=== PATIENT | male | born 1995 | race Caucasian/White ===

== ENCOUNTER 2017-01-12 15:56 | Emergency (ER) | payer OTHER ==
[2017-01-12 16:13] VITALS: BP 137/72
[2017-01-12] MEDS ORDERED: Lidocaine 1% 20 ML MDV INJECT ONE (16:17)
[2017-01-12] MEDS ORDERED: Bupivacaine 0.5% 10 ML SDV INJECT ONE (16:17)
--- NOTE | 2017-01-12 16:31 | EDM.PDOC ---
ED HPI GENERAL MEDICAL PROBLEM - General Chief Complaint: Upper Extremity Injury/Pain Stated Complaint: SMASHED FINGER Time Seen by Provider: 01/12/17 16:08 Source of Information: Reports: Patient History Limitations: Reports: No Limitations - History of Present Illness INITIAL COMMENTS - FREE TEXT/NARRATIVE: History of present illness: []Patient was working on his car and his right index finger was crushed Review of systems: As per history of present illness and below otherwise all systems reviewed and negative. Past medical history: As per history of present illness and as reviewed below otherwise noncontributory. Surgical history: As per history of present illness and as reviewed below otherwise noncontributory. Social history: No reported history of drug or alcohol abuse. Family history: As per history of present illness and as reviewed below otherwise noncontributory. Physical exam: General: Well developed, well nourished in NAD HEENT: Atraumatic, normocephalic, pupils reactive, negative for conjunctival pallor or scleral icterus, mucous membranes moist, throat clear, neck supple, nontender, trachea midline. Lungs: Clear to auscultation, breath sounds equal bilaterally, chest nontender. Heart: S1S2, regular, negative for clicks, rubs, or JVD. Abdomen: Soft, nondistended, nontender. Negative for masses or hepatosplenomegaly. Negative for costovertebral tenderness. Pelvis: Stable nontender. Genitourinary: Deferred. Rectal: Deferred. Extremities: Right index finger with crush nail plate and bed, no active bleeding negative for cords or calf pain. Neurovascular unremarkable. Neuro: Awake, alert, oriented. Cranial nerves II through XII unremarkable. Cerebellum unremarkable. Motor and sensory unremarkable throughout. Exam nonfocal. Diagnostics: []X-ray showing no fracture or dislocation Therapeutics: []Patient's finger was repaired in the ED by Dr. Cavazos, please see her note Impression: []Crush injury right index finger Plan: []Daniel Ahmadi follow-up with Dr. Cavazos as directed Definitive disposition and diagnosis as appropriate pending reevaluation and review of above. Right 2-Index finger Pain Score (Numeric/FACES): 6 - Related Data Allergies Allergy/AdvReac Type Severity Reaction Status Date / Time No Known Allergies Allergy Verified 01/12/17 16:13 Home Meds: Home Meds Acetaminophen/HYDROcodone [[place] 325-5 MG] 1 tab PO Q6H PRN #16 tablet 01/12/17 [Rx] Cephalexin [Keflex] 500 mg PO Q6HR #28 cap 01/12/17 [Rx] Past Medical History Gastrointestinal History: Reports: None - Past Surgical History GI Surgical History: Reports: Appendectomy Other Musculoskeletal Surgeries/Procedures:: left shouylder surgery Social & Family History - Family History Family Medical History: Noncontributory - Tobacco Use Smoking Status *Q: Current Every Day Smoker Years of Tobacco use: 4 Packs/Tins Daily: 0.4 - Caffeine Use Caffeine Use: Reports: Coffee Caffeine Use Comment: 1cups/day - Alcohol Use Days Per Week of Alcohol Use: 1 Number of Drinks Per Day: 2 Total Drinks Per Week: 2 - Recreational Drug Use Recreational Drug Use: No Review of Systems - Review of Systems Review Of Systems: See Below (See history of present illness) ED EXAM, GENERAL - Physical Exam Exam: See Below (See history of present illness) Course - Vital Signs Last Recorded V/S: Last Vital Signs Temp 36.4 C 01/12/17 16:09 Pulse 81 01/12/17 16:09 Resp 19 01/12/17 16:09 BP 137/72 01/12/17 16:09 Pulse Ox 96 01/12/17 16:09 - Orders/Labs/Meds Orders: Active Orders 24 hr Category Date Time Status Fingers Second Digit Rt F6 [CR] Stat Exams 01/12/17 16:18 Taken Meds: Medications Discontinued Medications Generic Name Dose Route Start Last Admin Trade Name Yannq PRN Reason Stop Dose Admin Bupivacaine HCl 10 ml 01/12/17 16:17 01/12/17 16:25 Sensorcaine-Mpf 0.5% INJECT 01/12/17 16:18 10 ml ONETIME ONE Administration Cefazolin Sodium 1 gm 01/12/17 16:32 01/12/17 16:51 Ancef IM 01/12/17 16:33 1 gm ONETIME ONE Administration Sterile Water Confirm 01/12/17 16:47 01/12/17 16:51 Sterile Water For Injection Administered 01/12/17 16:48 Not Given Dose 20 mls @ as directed .ROUTE .STK-MED ONE Lidocaine HCl 20 ml 01/12/17 16:17 01/12/17 16:25 Xylocaine 1% INJECT 01/12/17 16:18 20 ml ONETIME ONE Administration Departure - Departure Time of Disposition: 17:21 Disposition: Home, Self-Care 01 Condition: good Clinical Impression: Crushing injury of right index finger, initial encounter Qualifiers: Encounter type: initial encounter Qualified Code(s): S67.190A - Crushing injury of right index finger, initial encounter - Discharge Information Prescriptions: Cephalexin [Keflex] 500 mg PO Q6HR #28 cap Acetaminophen/HYDROcodone [[place] 325-5 MG] 1 tab PO Q6H PRN #16 tablet PRN Reason: Pain Forms: ED Department Discharge Additional Instructions: The following information is given to patients seen in the emergency department who are being discharged to home. This information is to outline your options for follow-up care. We provide all patients seen in our emergency department with a follow-up referral. The need for follow-up, as well as the timing and circumstances, are variable depending upon the specifics of your emergency department visit. If you don't have a primary care physician on staff, we will provide you with a referral. We always advise you to contact your personal physician following an emergency department visit to inform them of the circumstance of the visit and for follow-up with them and/or the need for any referrals to a consulting specialist. The emergency department will also refer you to a specialist when appropriate. This referral assures that you have the opportunity for follow-up care with a specialist. All of these measure are taken in an effort to provide you with optimal care, which includes your follow-up. Under all circumstances we always encourage you to contact your private physician who remains a resource for coordinating your care. When calling for follow-up care, please make the office aware that this follow-up is from your recent emergency room visit. If for any reason you are refused follow-up, please contact the [facility] Emergency Department at and asked to speak to the emergency department charge nurse. Keflex and [place] as directed ice and elevate finger Follow-up hand surgery [facility] Professional Building [address] [place] [address], [address] [place] [address] - My Orders Last 24 Hours: My Active Orders 01/12/17 16:18 Fingers Second Digit Rt F6 [CR] Stat - Assessment/Plan Last 24 Hours: My Active Orders 01/12/17 16:18 Fingers Second Digit Rt F6 [CR] Stat
[2017-01-12] MEDS ORDERED: Water For Injection, Sterile 20 ML ONE (16:47)
[2017-01-12] MEDS: ceFAZolin 1 GM Vial IM ONE ×2 (16:50→16:51)
--- NOTE | 2017-01-13 10:48 | CR ---
EXAM DATE: 01/12/17 PATIENT'S AGE: 21 Patient: MATTHEW WAGNER Facility: [place], [place] Site . Site : 1995 Study: XRay Extremity 2nd digit [id number]/8/2017 4:38:30 PM Ordering Physician: Den García Final Report: HISTORY: Crush injury to 2nd digit. FINDINGS: Three views of the right 2nd finger demonstrates a soft tissue defect at the dorsal tip of the finger. The distal tuft appears intact. There is a tiny focus of increased density seen at the dorsal skin surface at the base of the nail bed. This does not have the appearance of fracture fragment. IMPRESSION: Soft tissue injury to the distal 2nd finger without fracture. Dictated by Idalmis Lozano MD @ 01/12/2017 4:46:56 PM Dictated by: Idalmis Lozano MD @ 01/12/2017 16:47:03 (Electronic Signature) Report Signed by Proxy. CAIO
--- NOTE | 2017-01-13 13:07 | PCM.CONS ---
H&P History of Present Illness - General Date of Service: 01/12/17 Admit Problem/Dx: right hand index finger injury - nailbed laceration - from working on car. Source of Information: Patient History Limitations: Reports: No Limitations - History of Present Illness Initial Comments - Free Text/Narative: right index finger nailbed laceration from working on car. Just happened. Onset of Symptoms: Reports: Today, Sudden Symptom Onset Date: 01/12/17 Location: Reports: Upper Extremity, Right Quality: Reports: Pressure Severity: Moderate Improves with: Reports: Rest Worsens with: Reports: Movement Associated Symptoms: Reports: No Other Symptoms Right 2-Index finger Pain Score (Numeric/FACES): 6 - Related Data Allergies/Adverse Reactions: Allergies Allergy/AdvReac Type Severity Reaction Status Date / Time No Known Allergies Allergy Verified 01/12/17 16:13 Home Medications: Home Meds Acetaminophen/HYDROcodone [[place] 325-5 MG] 1 tab PO Q6H PRN #16 tablet 01/12/17 [Rx] Cephalexin [Keflex] 500 mg PO Q6HR #28 cap 01/12/17 [Rx] Past Medical History Gastrointestinal History: Reports: None - Past Surgical History GI Surgical History: Reports: Appendectomy Other Musculoskeletal Surgeries/Procedures:: left shouylder surgery Social & Family History - Family History Family Medical History: Noncontributory - Tobacco Use Smoking Status *Q: Current Every Day Smoker Years of Tobacco use: 4 Packs/Tins Daily: 0.4 - Caffeine Use Caffeine Use: Reports: Coffee Caffeine Use Comment: 1cups/day - Alcohol Use Days Per Week of Alcohol Use: 1 Number of Drinks Per Day: 2 Total Drinks Per Week: 2 - Recreational Drug Use Recreational Drug Use: No H&P Review of Systems - Review of Systems: Review Of Systems: See Below General: Reports: No Symptoms HEENT: Reports: No Symptoms Pulmonary: Reports: No Symptoms Musculoskeletal: Reports: Hand Pain Skin: Reports: Wound Psychiatric: Reports: No Symptoms Neurological: Reports: No Symptoms Exam - Exam Exam: See Below - Vital Signs Vital Signs: Last Vital Signs Temp 97.5 F 01/12/17 16:09 Pulse 81 01/12/17 16:09 Resp 19 01/12/17 16:09 BP 137/72 01/12/17 16:09 Pulse Ox 96 01/12/17 16:09 Weight: 240 lb 8.389 oz - Exam General: Alert, Oriented, Cooperative Lungs: Normal Respiratory Effort Extremities: Normal Pulses Skin: Warm, Dry, Wound (right index finger nailbed laceration involving distal tip of the finger. 1/2 the nail avulsed. ) Neuro Extensive - Mental Status: Alert, Oriented x3, Normal Mood/Affect, Normal Cognition, Memory Intact - Patient Data Imaging Impressions last 24 hrs: 3v of the right index finger do not show signs of fracture - my read Consult PN Assessment/Plan (1) Crushing injury of right index finger, initial encounter SNOMED Code(s): 06366314, 13582413 Code(s): S67.190A - CRUSHING INJURY OF RIGHT INDEX FINGER, INITIAL ENCOUNTER Priority: Medium Qualifiers: Encounter type: initial encounter Qualified Code(s): S67.190A - Crushing injury of right index finger, initial encounter Problem List Initiated/Reviewed/Updated: Yes Plan: irrigation repair in the ER> home on norco and antibiotics after. Requesting Provider: darien stevens Date Consult Requested: 01/12/17 Reason for Consult: nailbed injury Patient History Reviewed: Yes Admission H&P Reviewed: Yes Consult Result/Summary:: repair in the er Notified Requestor: Yes Time Spent (in minutes): 30
--- NOTE | 2017-01-30 14:02 | OR ---
SURGEON: PINKY MADRIGAL MD DATE OF PROCEDURE: 01/12/2017 PREOPERATIVE DIAGNOSIS: Right hand index finger with nail bed laceration. POSTOPERATIVE DIAGNOSIS: Right hand index finger with nail bed laceration. PROCEDURE: Repair of right hand index finger nail bed laceration. BOILER BLOWER: None. INDICATIONS: Mr. Thrasher is a 21-year-old gentleman, who was working on his car and unfortunately had sustained a right hand index finger nail bed laceration. Risks and benefits of repair were discussed with him and he is in agreement to proceed. PROCEDURE IN DETAIL: After informed consent was obtained from the patient verbally, the area was anesthetized with 0.25% Marcaine and digital block. After adequate anesthesia, the area was copiously irrigated and debrided of gross contamination. Once adequately debrided, attention was then paid to reapproximation of the tissues using a 5-0 chromic stitch in an interrupted fashion. Once adequately repaired, the wound was dressed with Xeroform, fluffs, and a Kerlix gauze dressing. FOLLOWUP INSTRUCTIONS: The patient tolerated the procedure well and all counts and needles were correct at the end of the case. He was given a prescription for pain control and antibiotics and will see us in clinic in approximately 1 week, sooner if there are any problems, questions, or concerns. HEGGTHE / DAVID /[id number]
== END 2017-01-12 17:27 | disposition home or self-care (01) ==
LOC: MW.ED 15:56
DX: S67.190A Crushing injury of right index finger, initial encounter (principal); F17.210 Nicotine dependence, cigarettes, uncomplicated; Z90.49 Acquired absence of other specified parts of digestive tract; Z98.890 Other specified postprocedural states; W23.0XXA Caught, crushed, jammed, or pinched between moving objects, initial encounter; Y93.89 Activity, other specified
CPT/HCPCS: 73140; 96372; 99283; J0690; 99284